=== PATIENT | male | born 1940 | race Caucasian/White ===

== ENCOUNTER → 2017-03-16 | Outpatient (CLI) | payer MEDICARE, BC ==
[~2017-03-16] MED LIST: DOBUTamine DRIP for NUC MED 250 MG in DEXTROSE/WATER 1 250ML.BAG IV ONE
== END | disposition home or self-care (01) ==
LOC: RADNMMAIN 09:45
PROVIDERS: ATTEND Pediatrics
DX: R49.9 Unspecified voice and resonance disorder (principal); R03.0 Elevated blood-pressure reading, without diagnosis of hypertension

== ENCOUNTER → 2017-03-24 | Outpatient (CLI) | payer MEDICARE, BC ==
[~2017-03-24] MED LIST changes: -DOBUTamine DRIP for NUC MED 250 MG in DEXTROSE/WATER 1 250ML.BAG IV ONE; +REGADENOSON 0.4 MG/5 ML SYRINGE IV ONE
--- NOTE | 2017-03-24 10:31 | NM ---
EXAMINATION TYPE: NM stress lexiscan cardiolite DATE OF EXAM: 03/24/2017 COMPARISON: High blood pressure and irregular heartbeat HISTORY: TECHNIQUE: After the intravenous administration of 11 mCi Tc 99m Sestamibi - Cardiolite resting SPEC T images acquired 45 minutes post injection. The patient received 0.4mg Lexiscan, 25.4 mCi Tc 99m Sestamibi - Stress images obtained [address] injection FINDINGS: Review of stress and rest SPECT images demonstrates no distinct perfusion abnormality. Gated analysi s shows normal wall motion with an estimated left ventricular ejection fraction of 57 %. IMPRESSION: No scintigraphic evidence for reversible ischemia.
--- NOTE | 2017-03-24 10:36 | EST ---
EXERCISE STRESS DATE OF SERVICE: 03/24/2017 AGE: 76 SEX: Male HT: 6'0" WT: 130 pounds PROTOCOL: Lexiscan Cardiolite STAGE: DURATION OF EXERCISE: HEART RATE REST: 57 BLOOD PRESSURE REST: 203/48 MAXIMUM HEART RATE ACHIEVED: 84 MAXIMUM BLOOD PRESSURE: 247/63 85% MPHR: 124 100% MPHR: 146 METS: INDICATIONS: Elevated blood pressure CLINICAL INFORMATION: Baseline rhythm is sinus mechanism, rate of 57, normal axis and intervals. Poor R progression. Rare PVCs. Baseline blood pressure 203/48 mmHg. Patient received an injection of Lexiscan. Electrocardiograph monitoring revealed no evidence of diagnostic ischemic ST deviation. Cardiolite was injected per protocol. CONCLUSION: 1. Nondiagnostic electrocardiograph stress testing. 2. Nuclear images will be reported separately. MMODL / IJN: [id number] /
== END | disposition home or self-care (01) ==
LOC: RADNMMAIN 07:39
PROVIDERS: ATTEND Pediatrics
DX: I49.9 Cardiac arrhythmia, unspecified (principal); R03.0 Elevated blood-pressure reading, without diagnosis of hypertension
CPT/HCPCS: 93017; 78452; A9500; J2785

== ENCOUNTER 2020-10-01 10:50 | Inpatient (IN) | payer MEDICARE, BC ==
[2020-10-01] MEDS ORDERED: SODIUM CHLORIDE 0.9% 1,000 ML IV STA (11:10)
--- NOTE | 2020-10-01 11:13 | ED ---
Weakness HPI - General Chief complaint: Weakness Stated complaint: Weakness Time Seen by Provider: 10/01/20 11:01 Source: EMS Mode of arrival: EMS Limitations: no limitations - History of Present Illness Initial comments: 79-year-old male with recently diagnosed stage IV lung cancer presenting to the emergency department with chief complaint of weakness. Patient reports he hasn't progressively feeling weaker and today on his way to the bathroom, he f ell to the ground without any loss of consciousness or any head injuries. Patient does report occasional shortness of breath but states that his baseline. He still continues to smoke cigarettes. He denies any chest pain shortness of breath. States his mouth feels dry. The patient can plenty water. He does report decreased appetite. Denies any urinary symptoms. C covid-19t vaccinations. - Related Data Allergies Allergy/AdvReac Type Severity Reaction Status Date / Time No Known Allergies Allergy Unverified 03/16/17 10:20 Review of Systems ROS Statement: Those systems with pertinent positive or pertinent negative responses have been documented in the HPI. ROS Other: All systems not noted in ROS Statement are negative. Past Medical History Past Medical History: Cancer Additional Past Medical History / Comment(s): Lung CA History of Any Multi-Drug Resistant Organisms: None Reported Past Surgical History: No Surgical Hx Reported Past Psychological History: No Psychological Hx Reported Smoking Status: Current every day smoker Past Alcohol Use History: None Reported Past Drug Use History: None Reported General Exam Limitations: no limitations General appearance: alert, in no apparent distress, cachectic Head exam: Present: atraumatic, normocephalic, normal inspection Eye exam: Present: normal appearance Pupils: Present: normal accommodation ENT exam: Present: normal exam, normal oropharynx, mucous membranes dry Neck exam: Present: normal inspection, full ROM Respiratory exam: Present: normal lung sounds bilaterally. Absent: respiratory distress Cardiovascular Exam: Present: regular rate, normal rhythm, normal heart sounds. Absent: systolic murmur GI/Abdominal exam: Present: soft. Absent: distended, tenderness, guarding, rebound, rigid Extremities exam: Present: normal inspection, full ROM, normal capillary refill. Absent: tenderness Back exam: Present: normal inspection, full ROM. Absent: tenderness Neurological exam: Present: alert, oriented X3 Psychiatric exam: Present: normal affect, normal mood Skin exam: Present: warm, dry, intact, normal color Course Vital Signs 10/01/20 10/01/20 10:57 11:00 Temperature 97.9 F Pulse Rate 61 Respiratory 16 18 Rate Blood Pressure 106/83 EKG Findings - EKG Comments: EKG Findings:: sinus tachycardia. Ventricular rate 102, MI 166, QRS 70, QTC 437. Medical Decision Making - Medical Decision Making 79-year-old male with recently diagnosed stage IV lung cancer presenting to the emergency department with chief complaint of weakness. On physical examination, patient appears to be cachectic. Clinically he is dehydrated. CBC reveals mild leukocytosis. CMP shows elevated BUN and creatinine. Patient also had elevated troponin of 0.066. Patient was started on aspirin immediately. EKG did not appear to be ischemic. UA shows a urinary tract infection. Patient started on Rocephin. I spoke to Dr. Tobar who will admit the patient for medical management. Case discussed with Dr. Celestin. Cardiology consult Oncology consult - Lab Data Result diagrams: 10/01/20 11:25 10/01/20 11:19 Lab Results 10/01/20 10/01/20 10/01/20 Range/Units 11:19 11:19 11:19 WBC (3.8-10.6) k/uL RBC (4.30-5.90) m/uL Hgb (13.0-17.5) gm/dL Hct (39.0-53.0) % MCV (80.0-100.0) fL MCH (25.0-35.0) pg MCHC (31.0-37.0) g/dL RDW (11.5-15.5) % Plt Count (150-450) k/uL MPV Neutrophils % % Lymphocytes % % Monocytes % % Eosinophils % % Basophils % % Neutrophils # (1.3-7.7) k/uL Lymphocytes # (1.0-4.8) k/uL Monocytes # (0-1.0) k/uL Eosinophils # (0-0.7) k/uL Basophils # (0-0.2) k/uL PT 10.9 (9.0-12.0) sec INR 1.0 (<1.2) APTT 22.5 (22.0-30.0) sec Sodium 143 (137-145) mmol/L Potassium 4.3 (3.5-5.1) mmol/L Chloride 107 (98-107) mmol/L Carbon Dioxide 27 (22-30) mmol/L Anion Gap 9 mmol/L BUN 34 H (9-20) mg/dL Creatinine 1.30 H (0.66-1.25) mg/dL Est GFR (CKD-EPI)AfAm 61 (>60 ml/min/1.73 sqM) Est GFR (CKD-EPI)NonAf 53 (>60 ml/min/1.73 sqM) Glucose 113 H (74-99) mg/dL Plasma Lactic Acid Emiliano 1.9 (0.7-2.0) mmol/L Calcium 10.8 H (8.4-10.2) mg/dL Magnesium 2.2 (1.6-2.3) mg/dL Total Bilirubin 1.2 (0.2-1.3) mg/dL AST 103 H (17-59) U/L ALT 34 (4-49) U/L Alkaline Phosphatase 223 H (38-126) U/L Troponin I (0.000-0.034) ng/mL Total Protein 7.1 (6.3-8.2) g/dL Albumin 4.0 (3.5-5.0) g/dL Urine Color Urine Appearance (Clear) Urine pH (5.0-8.0) Ur Specific [place] (1.001-1.035) Urine Protein (Negative) Urine Glucose (UA) (Negative) Urine Ketones (Negative) Urine Blood (Negative) Urine Nitrite (Negative) Urine Bilirubin (Negative) Urine Urobilinogen (<2.0) mg/dL Ur Leukocyte Esterase (Negative) Urine RBC (0-5) /hpf Urine WBC (0-5) /hpf Urine WBC Clumps (None) /hpf Urine Bacteria (None) /hpf Coronavirus (PCR) (Not Detectd) 10/01/20 10/01/20 10/01/20 Range/Units 11:19 11:25 12:13 WBC 11.1 H (3.8-10.6) k/uL RBC 4.83 (4.30-5.90) m/uL Hgb 16.4 (13.0-17.5) gm/dL Hct 48.9 (39.0-53.0) % MCV 101.1 H (80.0-100.0) fL MCH 33.8 (25.0-35.0) pg MCHC 33.5 (31.0-37.0) g/dL RDW 13.0 (11.5-15.5) % Plt Count 472 H (150-450) k/uL MPV 7.3 Neutrophils % 82 % Lymphocytes % 10 % Monocytes % 5 % Eosinophils % 1 % Basophils % 1 % Neutrophils # 9.1 H (1.3-7.7) k/uL Lymphocytes # 1.1 (1.0-4.8) k/uL Monocytes # 0.6 (0-1.0) k/uL Eosinophils # 0.1 (0-0.7) k/uL Basophils # 0.1 (0-0.2) k/uL PT (9.0-12.0) sec INR (<1.2) APTT (22.0-30.0) sec Sodium (137-145) mmol/L Potassium (3.5-5.1) mmol/L Chloride (98-107) mmol/L Carbon Dioxide (22-30) mmol/L Anion Gap mmol/L BUN (9-20) mg/dL Creatinine (0.66-1.25) mg/dL Est GFR (CKD-EPI)AfAm (>60 ml/min/1.73 sqM) Est GFR (CKD-EPI)NonAf (>60 ml/min/1.73 sqM) Glucose (74-99) mg/dL Plasma Lactic Acid Emiliano (0.7-2.0) mmol/L Calcium (8.4-10.2) mg/dL Magnesium (1.6-2.3) mg/dL Total Bilirubin (0.2-1.3) mg/dL AST (17-59) U/L ALT (4-49) U/L Alkaline Phosphatase (38-126) U/L Troponin I 0.066 H* (0.000-0.034) ng/mL Total Protein (6.3-8.2) g/dL Albumin (3.5-5.0) g/dL Urine Color Urine Appearance (Clear) Urine pH (5.0-8.0) Ur Specific [place] (1.001-1.035) Urine Protein (Negative) Urine Glucose (UA) (Negative) Urine Ketones (Negative) Urine Blood (Negative) Urine Nitrite (Negative) Urine Bilirubin (Negative) Urine Urobilinogen (<2.0) mg/dL Ur Leukocyte Esterase (Negative) Urine RBC (0-5) /hpf Urine WBC (0-5) /hpf Urine WBC Clumps (None) /hpf Urine Bacteria (None) /hpf Coronavirus (PCR) Not Detected (Not Detectd) 10/01/20 Range/Units 12:50 WBC (3.8-10.6) k/uL RBC (4.30-5.90) m/uL Hgb (13.0-17.5) gm/dL Hct (39.0-53.0) % MCV (80.0-100.0) fL MCH (25.0-35.0) pg MCHC (31.0-37.0) g/dL RDW (11.5-15.5) % Plt Count (150-450) k/uL MPV Neutrophils % % Lymphocytes % % Monocytes % % Eosinophils % % Basophils % % Neutrophils # (1.3-7.7) k/uL Lymphocytes # (1.0-4.8) k/uL Monocytes # (0-1.0) k/uL Eosinophils # (0-0.7) k/uL Basophils # (0-0.2) k/uL PT (9.0-12.0) sec INR (<1.2) APTT (22.0-30.0) sec Sodium (137-145) mmol/L Potassium (3.5-5.1) mmol/L Chloride (98-107) mmol/L Carbon Dioxide (22-30) mmol/L Anion Gap mmol/L BUN (9-20) mg/dL Creatinine (0.66-1.25) mg/dL Est GFR (CKD-EPI)AfAm (>60 ml/min/1.73 sqM) Est GFR (CKD-EPI)NonAf (>60 ml/min/1.73 sqM) Glucose (74-99) mg/dL Plasma Lactic Acid Emiliano (0.7-2.0) mmol/L Calcium (8.4-10.2) mg/dL Magnesium (1.6-2.3) mg/dL Total Bilirubin (0.2-1.3) mg/dL AST (17-59) U/L ALT (4-49) U/L Alkaline Phosphatase (38-126) U/L Troponin I (0.000-0.034) ng/mL Total Protein (6.3-8.2) g/dL Albumin (3.5-5.0) g/dL Urine Color Yellow Urine Appearance Cloudy (Clear) Urine pH 6.0 (5.0-8.0) Ur Specific [place] 1.010 (1.001-1.035) Urine Protein Trace H (Negative) Urine Glucose (UA) Negative (Negative) Urine Ketones Negative (Negative) Urine Blood Trace H (Negative) Urine Nitrite Negative (Negative) Urine Bilirubin Negative (Negative) Urine Urobilinogen <2.0 (<2.0) mg/dL Ur Leukocyte Esterase Large H (Negative) Urine RBC 8 H (0-5) /hpf Urine WBC >182 H (0-5) /hpf Urine WBC Clumps Few H (None) /hpf Urine Bacteria Rare H (None) /hpf Coronavirus (PCR) (Not Detectd) Disposition Clinical Impression: Urinary tract infection, Weakness, Elevated troponin, Dehydration Disposition: ADMITTED IP TO THIS [facility] Condition: Fair Is patient prescribed a controlled substance at d/c from ED?: No Referrals: Abram Franks MD [Primary Care Provider] - 1-2 days Time of Disposition: 13:53
[2020-10-01 11:44] LABS: Calcium 10.8 mg/dL (8.4-10.2); Magnesium 2.2 mg/dL (1.6-2.3); Potassium 4.3 mmol/L (3.5-5.1); Total Bilirubin 1.2 mg/dL (0.2-1.3); Total Protein 7.1 g/dL (6.3-8.2)
[2020-10-01 11:45] LABS: Basophils # (A) 0.1 k/uL (0-0.2); Basophils % (A) 1 %; Eosinophils # (A) 0.1 k/uL (0-0.7); Eosinophils % (A) 1 %; HCT 48.9 % (39.0-53.0); HGB 16.4 gm/dL (13.0-17.5); Lymphocytes # (A) 1.1 k/uL (1.0-4.8); Lymphocytes % (A) 10 %; MCH 33.8 pg (25.0-35.0); MCHC 33.5 g/dL (31.0-37.0); MCV 101.1 fL (80.0-100.0); Mean Platelet Volume 7.3; Monocytes # (A) 0.6 k/uL (0-1.0); Monocytes % (A) 5 %; Neutrophils # (A) 9.1 k/uL (1.3-7.7); Neutrophils % (A) 82 %; Platelet Count 472 k/uL (150-450); RBC 4.83 m/uL (4.30-5.90); WBC 11.1 k/uL (3.8-10.6)
[2020-10-01 11:49] LABS: Partial Thromboplastin Time 22.5 sec (22.0-30.0); Prothrombin Time 10.9 sec (9.0-12.0)
--- NOTE | 2020-10-01 11:57 | XR ---
EXAMINATION TYPE: XR chest 2V DATE OF EXAM: 10/01/2020 COMPARISON: NONE HISTORY: Weakness. TECHNIQUE: Frontal and lateral views of the chest are obtained. FINDINGS: There is chronic emphysematous pulmonary fibrotic change bilaterally. Entire left lung base not included. Suspicious scattered left lung nodule including 1.5 cm nodule over the anterior left s ixth rib. Possible more regular right suprahilar spiculated nodule. Pectus excavatum deformity on la teral view. Cardiac silhouette size is mildly enlarged. IMPRESSION: Chronic changes and mild cardiomegaly. Suspicious scattered nodules worrisome for metast atic neoplasm correlate clinically to determine need for further investigation by CT study. .
[2020-10-01 13:26] LABS: Appearance,Urine Cloudy (Clear); Bacteria,Urine Rare /hpf; Bilirubin,Urine Negative (Negative); Blood,Urine Trace (Negative); Color,Urine Yellow; Glucose,Urine (UA) Negative (Negative); Ketones,Urine Negative (Negative); Leukocyte Esterase,Urine Large (Negative); Nitrite,Urine Negative (Negative); Protein,Urine Trace (Negative); RBC,Urine 8 /hpf (0-5); Urobilinogen,Urine <2.0 mg/dL (<2.0); WBC,Urine >182 /hpf (0-5)
[2020-10-01] MEDS ORDERED: NALOXONE 0.4 MG/ML 1 ML VIAL IV PRN (13:46)
[2020-10-01] MEDS ORDERED: ONDANSETRON 4 MG/2 ML VIAL IVP PRN (13:46)
[2020-10-01] MEDS ORDERED: cefTRIAXone IN SWFI 1,000 MG/10 ML SYRINGE IVP STA (13:50)
[2020-10-01] MEDS ORDERED: ASPIRIN 325 MG TAB PO STA (13:52)
[2020-10-01] MEDS: SODIUM CHLORIDE 0.9% 1,000 ML IV SCH (14:39)
[2020-10-01] MEDS: traMADol 50 MG TAB PO PRN (14:43)
[2020-10-01] MEDS ORDERED: LORazepam 0.5 MG TAB PO PRN (20:50)
--- NOTE | 2020-10-01 21:36 | P.HPIM ---
History of Present Illness H&P Date: 10/01/20 Chief Complaint: Weakness fall History of presenting complaint: This is a pleasant 79-year-old patient, follows with Dr. Franks. Patient is diagnosed with lung cancer. Due for chemotherapy. Patient has progressively been getting weaker and weaker. Decreased appetite. Significant weight loss. Losing weight. And muscle mass. Does use a cane. Patient became very weak and actually fell down today. Did not pass out. No injury. Patient has significant constipation because of decreased oral intake. No fever no chills. No overt shortness of breath Review of systems: GEN.: Decreased appetite, weight loss EYES: None HEENT: None NECK: None RESPIRATORY: Some shortness of breath CARDIOVASCULAR: None GASTROINTESTINAL: Constipation GENITOURINARY: None MUSCULOSKELETAL: Muscle muscle mass LYMPHATICS: None HEMATOLOGICAL: None PSYCHIATRY: None NEUROLOGICAL: None Past medical history to include: Lung cancer Social history: Smoking for many is currently 1-2 packs a day. Lives alone. . Does use a cane. No alcohol. Family history: Reviewed, noncontributory to presentation Physical examination: VITAL SIGNS: 97.9, 61, 16, 106/83, 96% room air GENERAL: BMI 40.4, laying in bed, cachectic. EYES: Pupils equal. Conjunctiva palel. HEENT: External appearance of nose and ears normal, oral cavity grossly normal. NECK: JVD not raised; masses not palpable. HEART: First and second heart sounds are normal; no edema. LUNGS: Respiratory rate normal; diminished breath sounds. ABDOMEN: Soft, nontender, liver spleen not palpable, no masses palpable. PSYCH: Alert and oriented x3; mood and affect anxiousl. NEUROLOGICAL: Cranial nerves grossly intact; no facial asymmetry, power and sensation grossly intact. LYMPHATICS: No lymph nodes palpable in the axilla and neck INVESTIGATIONS, reviewed in the clinical context: WBC of 11.1 hemoglobin 16.4 platelets 472 potassium 4.3 BUN 34 creatinine 1.3 Troponin I 0.066 UA positive for leukoesterase, WBC, bacteria Coronavirus [PCR]: Not Detected EKG tracing personally reviewed by me-normal sinus rhythm, 4-2 Chest x-ray film personally reviewed by me-hyperinflated. Lung masses. Assessment and plan: -Acute fall from medical asthenia myopathy nutritional PT OT. IV fluids. 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 Stage unknown Due for chemotherapy. Consult oncology -Troponin anemia, but no clinical evidence of ACS. Likely hemodynamic mismatch in the setting of renal failure -COPD in a current smoker DuoNeb -Chronic nicotine dependence, cigarette smoker Nicotine patch -Severe protein calorie malnutrition from poor oral intake Nutritional supplement. Consult dietitian -BPH Flomax 0.4 mg daily -Anorexia from underlying malignancy Marinol Patient be admitted. IV fluids. Dietitian consult. Nutrition supplements. Fall precautions. PT OT. Consult oncology. Given the complexity and severity of patient's condition expect the patient to be in the hospital at least for 2 overnights Past Medical History Past Medical History: Cancer Additional Past Medical History / Comment(s): Lung CA History of Any Multi-Drug Resistant Organisms: None Reported Past Surgical History: No Surgical Hx Reported Past Anesthesia/Blood Transfusion Reactions: No Reported Reaction Past Psychological History: No Psychological Hx Reported Smoking Status: Current some day smoker Past Alcohol Use History: None Reported Past Drug Use History: None Reported Medications and Allergies Home Medications Medication Instructions Recorded Confirmed Type Famotidine [Pepcid] 20 mg PO DAILY 10/01/20 10/01/20 History Folic Acid 1 mg PO DAILY 10/01/20 10/01/20 History LORazepam [Ativan] 0.5 mg PO DAILY PRN 10/01/20 10/01/20 History Polyethylene Glycol 3350 [Miralax] 17 gm PO DAILY 10/01/20 10/01/20 History Tamsulosin HCl [Flomax] 0.4 mg PO DAILY 10/01/20 10/01/20 History dronabinoL [Dronabinol] 5 mg PO HS 10/01/20 10/01/20 History ondansetron HCL [Zofran] 8 mg PO Q8HR PRN 10/01/20 10/01/20 History traMADol HCl [Ultram] 50 mg PO Q6HR PRN 10/01/20 10/01/20 History Allergies Allergy/AdvReac Type Severity Reaction Status Date / Time No Known Allergies Allergy Verified 10/01/20 14:05 Physical Exam Vitals: Vital Signs Temp Pulse Resp BP Pulse Ox 10/01/20 19:26 97.8 F 91 16 101/83 98 10/01/20 18:44 98.0 F 75 16 91/67 96 10/01/20 11:00 18 10/01/20 10:57 97.9 F 61 16 106/83 Intake and Output 10/01/20 10/01/20 10/01/20 06:59 14:59 22:59 Other: Weight 48.081 kg Results CBC & Chem 7: 10/01/20 11:25 10/01/20 11:19 Labs: Abnormal Lab Results - Last 24 Hours (Table) 10/01/20 10/01/20 10/01/20 Range/Units 11:19 11:19 11:25 WBC 11.1 H (3.8-10.6) k/uL MCV 101.1 H (80.0-100.0) fL Plt Count 472 H (150-450) k/uL Neutrophils # 9.1 H (1.3-7.7) k/uL BUN 34 H (9-20) mg/dL Creatinine 1.30 H (0.66-1.25) mg/dL Glucose 113 H (74-99) mg/dL Calcium 10.8 H (8.4-10.2) mg/dL AST 103 H (17-59) U/L Alkaline Phosphatase 223 H (38-126) U/L Troponin I 0.066 H* (0.000-0.034) ng/mL Urine Protein (Negative) Urine Blood (Negative) Ur Leukocyte Esterase (Negative) Urine RBC (0-5) /hpf Urine WBC (0-5) /hpf Urine WBC Clumps (None) /hpf Urine Bacteria (None) /hpf 10/01/20 Range/Units 12:50 WBC (3.8-10.6) k/uL MCV (80.0-100.0) fL Plt Count (150-450) k/uL Neutrophils # (1.3-7.7) k/uL BUN (9-20) mg/dL Creatinine (0.66-1.25) mg/dL Glucose (74-99) mg/dL Calcium (8.4-10.2) mg/dL AST (17-59) U/L Alkaline Phosphatase (38-126) U/L Troponin I (0.000-0.034) ng/mL Urine Protein Trace H (Negative) Urine Blood Trace H (Negative) Ur Leukocyte Esterase Large H (Negative) Urine RBC 8 H (0-5) /hpf Urine WBC >182 H (0-5) /hpf Urine WBC Clumps Few H (None) /hpf Urine Bacteria Rare H (None) /hpf Microbiology - Last 24 Hours (Table) 10/01/20 12:50 Urine Culture - Preliminary Urine,Voided
[2020-10-01] MEDS: NICOTINE 21MG/24HR PATCH TRANSDERM SCH (22:05)
[2020-10-02] MEDS: SODIUM CHLORIDE 0.9% 1,000 ML IV SCH (02:39)
[2020-10-02] MEDS: traMADol 50 MG TAB PO PRN ×2 (05:15→21:00)
[2020-10-02] MEDS: IPRATROPIUM-ALBUTEROL 3 ML NEB INHALATION SCH ×4 (07:49→20:32)
[2020-10-02] MEDS: FOLIC ACID 1 MG TAB PO SCH (08:22)
[2020-10-02] MEDS: NICOTINE 21MG/24HR PATCH TRANSDERM SCH (08:22)
[2020-10-02] MEDS: TAMSULOSIN 0.4 MG CAP.ER.24H PO SCH (08:22)
[2020-10-02] MEDS: FAMOTIDINE 20 MG TAB PO SCH (08:22)
[2020-10-02] MEDS ORDERED: PANTOPRAZOLE 40 MG/10 ML VIAL IV SCH (09:00)
[2020-10-02 09:28] LABS: Calcium 10.1 mg/dL (8.4-10.2); Potassium 4.2 mmol/L (3.5-5.1)
--- NOTE | 2020-10-02 11:17 | P.CRDCN ---
History of Present Illness History of present illness: HISTORY OF PRESENTING ILLNESS This is a pleasant 79-year-old male past medical history significant for stage IV lung cancer and chronic nicotine dependence. 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 We have been asked to see in consultation for elevated troponin. He presented to the hospital after suffering a fall at home. He states he got up to use the bathroom. He felt as though he had to have a bowel movement. He went into the bathroom and started feeling dizzy. He states it felt like the room was spinning and the next thing he remembers is waking up on the floor. He thinks the syncope was brief because his brother heard him fall and came in immediately and woke him up. He denies feeling chest pain or shortness of breath or palpitations prior to falling. He is complaining now of torso pain. He states he's recently been diagnosed with lung cancer and has not begun treatment as of yet. Orthostatic vital signs requested this morning are positive. Supine blood pressure 153/74 and standing blood pressure 74/47. Heart rate went from 84-110. DIAGNOSTICS EKG reveals sinus tachycardia, biatrial enlargement, left axis deviation, poor R-wave progression and nonspecific abnormalities. There are no old EKGs for comparison. Telemetry tracings indicate sinus mechanism. Chest xray chronic changes and mild cardiomegaly, suspicious scattered nodules worrisome for metastatic neoplasm. Laboratory reviewed, WBC 11.1, hemoglobin 16.4, platelets 472, sodium 143, potassium 4.3, creatinine 1.3, magnesium 2.2, troponin 0.0 66. He takes no daily cardiac medications. REVIEW OF SYSTEMS At the time of my exam: CONSTITUTIONAL: Denies fever or chills. CARDIOVASCULAR: Denies chest pain, shortness of breath, orthopnea, PND or palpitations. RESPIRATORY: Denies cough. GASTROINTESTINAL: Denies abdominal pain, diarrhea, constipation, nausea or vomiting. MUSCULOSKELETAL: Denies myalgias. NEUROLOGIC: Complains of dizziness. Denies numbness, tingling, headache or weakness. ENDOCRINE: Denies fatigue, weight change, polydipsia or polyurina. GENITOURINARY: Denies burning, hematuria or urgency with micturation. HEMATOLOGIC: Denies history of anemia or bleeding. PHYSICAL EXAMINATION Blood pressure 153/74 heart rate 92 afebrile and maintaining oxygen saturation on room air. CONSTITUTIONAL: No apparent distress. HEENT: Head is normocephalic. Pupils are equal, round. Sclerae anicteric. Mucous membranes of the mouth are moist. No JVD. No carotid bruit. CHEST EXAMINATION: Lungs are clear to auscultation. No chest wall tenderness is noted on palpation or with deep breathing. Bilaterally. HEART EXAMINATION: Regular rate and rhythm. S1, S2 heard. No murmurs, gallops or rub. ABDOMEN: Soft, nontender. EXTREMITIES: 2+ peripheral pulses, no lower extremity edema and no calf tenderness. NEUROLOGIC EXAMINATION: Patient is awake, alert and oriented x3. ASSESSMENT Syncope secondary to orthostatic changes Orthostatic hypotension Troponin leak, likely due to renal function Acute kidney injury Dehydration Frail, BMI 14 Lung cancer Chronic nicotine dependence PLAN Repeat EKG. Increase IV fluids to 150ml/hr for the next 6 hours. Repeat troponin and BMP. Obtain 2D echocardiogram and doppler study to assess cardiac structure and function. Thank you kindly for this consultation. Nurse Practitioner note has been reviewed, I agree with a documented findings and plan of care. Patient was seen and examined. Past Medical History Past Medical History: Cancer Additional Past Medical History / Comment(s): Lung CA History of Any Multi-Drug Resistant Organisms: None Reported Past Surgical History: No Surgical Hx Reported Past Anesthesia/Blood Transfusion Reactions: No Reported Reaction Past Psychological History: No Psychological Hx Reported Smoking Status: Current some day smoker Past Alcohol Use History: None Reported Past Drug Use History: None Reported Medications and Allergies Home Medications Medication Instructions Recorded Confirmed Type Famotidine [Pepcid] 20 mg PO DAILY 10/01/20 10/01/20 History Folic Acid 1 mg PO DAILY 10/01/20 10/01/20 History LORazepam [Ativan] 0.5 mg PO DAILY PRN 10/01/20 10/01/20 History Polyethylene Glycol 3350 [Miralax] 17 gm PO DAILY 10/01/20 10/01/20 History Tamsulosin HCl [Flomax] 0.4 mg PO DAILY 10/01/20 10/01/20 History dronabinoL [Dronabinol] 5 mg PO HS 10/01/20 10/01/20 History ondansetron HCL [Zofran] 8 mg PO Q8HR PRN 08/18/21 08/18/21 History traMADol HCl [Ultram] 50 mg PO Q6HR PRN 10/01/20 10/01/20 History Allergies Allergy/AdvReac Type Severity Reaction Status Date / Time No Known Allergies Allergy Verified 10/01/20 14:05 Physical Exam Vitals: Vital Signs Temp Pulse Pulse Resp BP BP Pulse Ox 10/02/20 08:03 92 10/02/20 08:00 84 16 153/74 97 10/02/20 07:53 96 10/02/20 04:00 97.8 F 92 16 119/63 96 10/02/20 00:00 97.8 F 99 16 132/70 96 10/01/20 20:00 97.6 F 89 16 128/69 97 10/01/20 19:26 97.8 F 91 16 101/83 98 10/01/20 18:44 98.0 F 75 16 91/67 96 10/01/20 11:00 18 10/01/20 10:57 97.9 F 61 16 106/83 Intake and Output 10/01/20 10/02/20 10/02/20 22:59 06:59 14:59 Output Total 250 Balance -250 Output: Urine 250 Other: Voiding Method Urinal Urinal # Voids 1 Results 10/01/20 11:25 10/02/20 08:42 Cardiac Enzymes 10/01/20 10/01/20 Range/Units 11:19 11:19 AST 103 H (17-59) U/L Troponin I 0.066 H* (0.000-0.034) ng/mL Coagulation 10/01/20 Range/Units 11:19 PT 10.9 (9.0-12.0) sec APTT 22.5 (22.0-30.0) sec CBC 10/01/20 Range/Units 11:25 WBC 11.1 H (3.8-10.6) k/uL RBC 4.83 (4.30-5.90) m/uL Hgb 16.4 (13.0-17.5) gm/dL Hct 48.9 (39.0-53.0) % Plt Count 472 H (150-450) k/uL Comprehensive Metabolic Panel 10/01/20 Range/Units 11:19 Sodium 143 (137-145) mmol/L Potassium 4.3 (3.5-5.1) mmol/L Chloride 107 (98-107) mmol/L Carbon Dioxide 27 (22-30) mmol/L BUN 34 H (9-20) mg/dL Creatinine 1.30 H (0.66-1.25) mg/dL Glucose 113 H (74-99) mg/dL Calcium 10.8 H (8.4-10.2) mg/dL AST 103 H (17-59) U/L ALT 34 (4-49) U/L Alkaline Phosphatase 223 H (38-126) U/L Total Protein 7.1 (6.3-8.2) g/dL Albumin 4.0 (3.5-5.0) g/dL Current Medications Generic Name Dose Route Start Last Admin Trade Name Freq PRN Reason Stop Dose Admin Albuterol/Ipratropium 3 ml 10/02/20 08:00 10/02/20 07:49 Ipratropium-Albuterol 3 Ml Neb INHALATION 3 ml RT-QID SRUTHI Administration Dronabinol 5 mg 10/01/20 21:00 10/01/20 22:05 Dronabinol 2.5 Mg Cap PO 5 mg HS SRUTHI Administration Famotidine 20 mg 10/02/20 09:00 10/02/20 08:22 Famotidine 20 Mg Tab PO 20 mg DAILY SRUTHI Administration Folic Acid 1 mg 10/02/20 09:00 10/02/20 08:22 Folic Acid 1 Mg Tab PO 1 mg DAILY SRUTHI Administration Sodium Chloride 1,000 mls @ 75 mls/hr 10/01/20 14:00 10/02/20 02:39 Saline 0.9% IV 75 mls/hr .[id number] SRUTHI Administration Lorazepam 0.5 mg 10/01/20 20:50 Lorazepam 0.5 Mg Tab PO DAILY PRN Anxiety Naloxone HCl 0.2 mg 10/01/20 13:46 Naloxone 0.4 Mg/Ml 1 Ml Vial IV Q2M PRN Opioid Reversal Nicotine 1 patch 10/01/20 21:45 10/02/20 08:22 Nicotine 21mg/24hr Patch TRANSDERM 1 patch DAILY SRUTHI Administration Ondansetron HCl 4 mg 10/01/20 13:46 Ondansetron 4 Mg/2 Ml Vial IVP Q8HR PRN Nausea And Vomiting Tamsulosin HCl 0.4 mg 10/02/20 09:00 10/02/20 08:22 Tamsulosin 0.4 Mg Cap.Er.24h PO 0.4 mg DAILY SRUTHI Administration Tramadol HCl 50 mg 10/01/20 14:41 10/02/20 05:15 Tramadol 50 Mg Tab PO 50 mg TID PRN Administration Pain Intake and Output 10/01/20 10/02/20 10/02/20 22:59 06:59 14:59 Output Total 250 Balance -250 Output: Urine 250 Other: Voiding Method Urinal Urinal # Voids 1 10/01/20 11:25 10/01/20 11:19
--- NOTE | 2020-10-02 11:34 | ECHOF ---
Referral Reason:syncope, elev trop MEASUREMENTS -------- HEIGHT: 182.9 cm WEIGHT: 48.1 kg BP: IVSd: 1.1 cm (0.6 - 1.1) LVIDd: 2.8 cm (3.9 - 5.3) LVPWd: 1.3 cm (0.6 - 1.1) IVSs: 1.2 cm LVIDs: 1.4 cm LVPWs: 1.6 cm EDV(Teich): 30 ml ESV(Teich): 5 ml EF(Teich): 83 % %FS: 50 % SV(Teich): 24 ml RAP: 5.00 mmHg RVSP: 30.01 mmHg FINDINGS -------- Limited Study: Pt has indentation in chest limited windows. Overall left ventricular systolic function is low-normal with, an EF between 50 - 55 %. T his study is a technically suboptimal with poor acoustic window. difficult to assess the lv function accuratel y. there is atypical motion of the septum The aortic valve was not well visualized. The mitral valve was not well visualized. The mitral valve is normal. The tricuspid valve was not well visualized. The pulmonic valve was not well visualized. CONCLUSIONS -------- 1. Overall left ventricular systolic function is low-normal with, an EF between 50 - 55 %. 2. his study is a technically suboptimal with poor acoustic window. difficult to assess the lv funct ion accurately. there is atypical motion of the septum 3. The aortic valve was not well visualized. 4. The mitral valve was not well visualized. 5. The mitral valve is normal. 6. The tricuspid valve was not well visualized. 7. The pulmonic valve was not well visualized. PARKING GARAGE MANAGER: Gemma Palencia, DOVCS
--- NOTE | 2020-10-02 14:21 | P.CONS ---
History of Present Illness - Reason for Consult Consult date: 10/02/20 metastatic cancer and malnutrition - History of Present Illness Osman was evaluated by us at [facility] after presenting with SOB, weakness, weight loss and diffuse body aches. He was found to have RML mass (3 cm) with multiple bilateral pulmonary nodules and lesion in liver C/W primary lung cancer with mets. He had US-Guided core liver Bx revealing metastatic Adenocarcinoma of lung primary The patient smokes 1 PPD X 60 years, denies ETOH use He C/O constipation, anorexia, weight loss (25 LBS) and lower back pain Both daughters at bedside. Review of Systems All systems: negative Constitutional: Reports as per HPI Past Medical History Past Medical History: Cancer Additional Past Medical History / Comment(s): Lung CA History of Any Multi-Drug Resistant Organisms: None Reported Past Surgical History: No Surgical Hx Reported Past Anesthesia/Blood Transfusion Reactions: No Reported Reaction Past Psychological History: No Psychological Hx Reported Smoking Status: Current some day smoker Past Alcohol Use History: None Reported Past Drug Use History: None Reported Medications and Allergies Home Medications Medication Instructions Recorded Confirmed Type Famotidine [Pepcid] 20 mg PO DAILY 10/01/20 10/01/20 History Folic Acid 1 mg PO DAILY 10/01/20 10/01/20 History LORazepam [Ativan] 0.5 mg PO DAILY PRN 10/01/20 10/01/20 History Polyethylene Glycol 3350 [Miralax] 17 gm PO DAILY 10/01/20 10/01/20 History Tamsulosin HCl [Flomax] 0.4 mg PO DAILY 10/01/20 10/01/20 History dronabinoL [Dronabinol] 5 mg PO HS 10/01/20 10/01/20 History ondansetron HCL [Zofran] 8 mg PO Q8HR PRN 10/01/20 10/01/20 History traMADol HCl [Ultram] 50 mg PO Q6HR PRN 10/01/20 10/01/20 History Allergies Allergy/AdvReac Type Severity Reaction Status Date / Time No Known Allergies Allergy Verified 10/01/20 14:05 Physical Exam Vitals: Vital Signs Temp Pulse Pulse Resp BP BP Pulse Ox 10/02/20 04:00 97.8 F 92 16 119/63 96 10/02/20 00:00 97.8 F 99 16 132/70 96 10/01/20 20:00 97.6 F 89 16 128/69 97 10/01/20 19:26 97.8 F 91 16 101/83 98 10/01/20 18:44 98.0 F 75 16 91/67 96 10/01/20 11:00 18 10/01/20 10:57 97.9 F 61 16 106/83 Intake and Output 10/01/20 10/02/20 10/02/20 22:59 06:59 14:59 Output Total 250 Balance -250 Output: Urine 250 Other: Voiding Method Urinal Urinal # Voids 1 - Constitutional General appearance: no acute distress, thin - EENT Eyes: poor dentition ENT: hard of hearing, NA/AT - Respiratory Respiratory: bilateral: diminished, rhonchi - Cardiovascular Rhythm: irregularly irregular - Gastrointestinal General gastrointestinal: soft - Integumentary Integumentary: pale - Neurologic Neurologic: CNII-XII intact - Musculoskeletal Musculoskeletal: generalized weakness - Psychiatric Psychiatric: A&O x's 3 Results CBC & Chem 7: 10/01/20 11:25 10/02/20 08:42 Labs: Abnormal Lab Results - Last 24 Hours (Table) 10/01/20 10/01/20 10/01/20 Range/Units 11:19 11:19 11:25 WBC 11.1 H (3.8-10.6) k/uL MCV 101.1 H (80.0-100.0) fL Plt Count 472 H (150-450) k/uL Neutrophils # 9.1 H (1.3-7.7) k/uL BUN 34 H (9-20) mg/dL Creatinine 1.30 H (0.66-1.25) mg/dL Glucose 113 H (74-99) mg/dL Calcium 10.8 H (8.4-10.2) mg/dL AST 103 H (17-59) U/L Alkaline Phosphatase 223 H (38-126) U/L Troponin I 0.066 H* (0.000-0.034) ng/mL Urine Protein (Negative) Urine Blood (Negative) Ur Leukocyte Esterase (Negative) Urine RBC (0-5) /hpf Urine WBC (0-5) /hpf Urine WBC Clumps (None) /hpf Urine Bacteria (None) /hpf 08/18/21 Range/Units 12:50 WBC (3.8-10.6) k/uL MCV (80.0-100.0) fL Plt Count (150-450) k/uL Neutrophils # (1.3-7.7) k/uL BUN (9-20) mg/dL Creatinine (0.66-1.25) mg/dL Glucose (74-99) mg/dL Calcium (8.4-10.2) mg/dL AST (17-59) U/L Alkaline Phosphatase (38-126) U/L Troponin I (0.000-0.034) ng/mL Urine Protein Trace H (Negative) Urine Blood Trace H (Negative) Ur Leukocyte Esterase Large H (Negative) Urine RBC 8 H (0-5) /hpf Urine WBC >182 H (0-5) /hpf Urine WBC Clumps Few H (None) /hpf Urine Bacteria Rare H (None) /hpf Microbiology - Last 24 Hours (Table) 10/01/20 12:50 Urine Culture - Preliminary Urine,Voided Assessment and Plan (1) Metastatic lung carcinoma Current Visit: Yes Status: Acute Code(s): C78.00 - SECONDARY MALIGNANT NEOPLASM OF UNSPECIFIED LUNG SNOMED Code(s): 91431475 (2) Malnutrition Current Visit: Yes Status: Acute Code(s): E46 - UNSPECIFIED PROTEIN-CALORIE MALNUTRITION SNOMED Code(s): 87362386 (3) Pain of metastatic malignancy Current Visit: Yes Status: Acute Code(s): G89.3 - NEOPLASM RELATED PAIN (ACUTE) (CHRONIC) SNOMED Code(s): 891859790 Plan: Will add Megace and VTE Prophylaxis for appetite Will further assess bone scan for targeted options pain management with radi ation PT/OT/DIeticien Pre Immune therapy labs (TSH/COrtisol) Vitamin assessment Treatment of UTI and Dehydration per primary team Discussed with patient and daughters at bedside Physician attestation: I have completed the full history and physical and agree with above dictation, dictated as a ascribe.
--- NOTE | 2020-10-02 16:41 | P.PN ---
Progress Note - Text Progress Note Date: 10/02/20 Chief Complaint: Weakness fall History of presenting complaint: This is a pleasant 79-year-old patient, follows with Dr. Franks. Patient is diagnosed with lung cancer. Due for chemotherapy. Patient has progressively been getting weaker and weaker. Decreased appetite. Significant weight loss. Losing weight. And muscle mass. Does use a cane. Patient became very weak and actually fell down today. Did not pass out. No injury. Patient has significant constipation because of decreased oral intake. No fever no chills. No overt shortness of breath Acute fall from medical asthenia, myopathy. Dehydration. Troponin leak from hemodynamic mismatch. No ACS. October 02. Some shortness of breath. Diet. Getting bronchodilators. Daughter at the bedside. Oral intake encouraged. Review of systems: Was done for constitutional, cardiovascular, GI, pulmonary. relevant finding as above Active Medications Albuterol/Ipratropium (Ipratropium-Albuterol 3 Ml Neb) 3 ml INHALATION RT-QID [facility] Last Admin: 10/02/20 16:10 Dose: 3 ml Documented by: Dronabinol (Dronabinol 2.5 Mg Cap) 5 mg PO HS [facility] Last Admin: 10/01/20 22:05 Dose: 5 mg Documented by: Enoxaparin Sodium (Enoxaparin 40 Mg/0.4 Ml Syringe) 40 mg SQ DAILY [facility] Famotidine (Famotidine 20 Mg Tab) 20 mg PO DAILY [facility] Last Admin: 10/02/20 08:22 Dose: 20 mg Documented by: Folic Acid (Folic Acid 1 Mg Tab) 1 mg PO DAILY [facility] Last Admin: 10/02/20 08:22 Dose: 1 mg Documented by: Lorazepam (Lorazepam 0.5 Mg Tab) 0.5 mg PO DAILY PRN PRN Reason: Anxiety Megestrol Acetate (Megestrol 400 Mg/10 Ml Cup) 800 mg PO DAILY [facility] Naloxone HCl (Naloxone 0.4 Mg/Ml 1 Ml Vial) 0.2 mg IV Q2M PRN PRN Reason: Opioid Reversal Nicotine (Nicotine 21mg/24hr Patch) 1 patch TRANSDERM DAILY [facility] Last Admin: 10/02/20 08:22 Dose: 1 patch Documented by: Ondansetron HCl (Ondansetron 4 Mg/2 Ml Vial) 4 mg IVP Q8HR PRN PRN Reason: Nausea And Vomiting Tamsulosin HCl (Tamsulosin 0.4 Mg Cap.Er.24h) 0.4 mg PO DAILY SRUTHI Last Admin: 10/02/20 08:22 Dose: 0.4 mg Documented by: Tramadol HCl (Tramadol 50 Mg Tab) 50 mg PO TID PRN PRN Reason: Pain Last Admin: 10/02/20 05:15 Dose: 50 mg Documented by: Past medical history to include: Lung cancer Social history: Smoking for many is currently 1-2 packs a day. Lives alone. . Does use a cane. No alcohol. Family history: Reviewed, noncontributory to presentation Physical examination: VITAL SIGNS: 97.8, 84, 16, 153/74, 97% room air GENERAL: BMI 14.4 laying in bed, cachectic. EYES: Pupils equal. Conjunctiva pale. HEENT: External appearance of nose and ears normal, oral cavity grossly normal. NECK: JVD not raised; masses not palpable. HEART: First and second heart sounds are normal; no edema. LUNGS: Respiratory rate increased; diminished breath sounds. ABDOMEN: Soft, nontender, liver spleen not palpable, no masses palpable. PSYCH: Alert and oriented x3; mood and affect anxiousl. INVESTIGATIONS, reviewed in the clinical context: October 02: Potassium 4.2 BUN 26 creatinine 1.10 2-D echocardiogram: EF 50-55%. WBC of 11.1 hemoglobin 16.4 platelets 472 potassium 4.3 BUN 34 creatinine 1.3 Troponin I 0.066, 0.058 UA positive for leukoesterase, WBC, bacteria Coronavirus [PCR]: Not Detected EKG tracing personally reviewed by me-normal sinus rhythm, 4-2 Chest x-ray film personally reviewed by me-hyperinflated. Lung masses. Assessment and plan: -Acute fall from medical asthenia myopathy nutritional PT OT. IV fluids. 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 Stage unknown Due for chemotherapy. Consult oncology -Troponinemia, but no clinical evidence of ACS. Likely hemodynamic mismatch in the setting of renal failure -COPD in a current smoker DuoNeb -Chronic nicotine dependence, cigarette smoker Nicotine patch -Severe protein calorie malnutrition from poor oral intake Nutritional supplement. Consult dietitian -BPH Flomax 0.4 mg daily -Anorexia from underlying malignancy Add Megace to Marinol - Continue with IV fluids. Nutritional supplements. Bronchodilators. PTOT. Care discussed with the patient daughter the bedside. Prognosis guarded. Add Megace to Marinol
[2020-10-02] MEDS: MEGESTROL 400 MG/10 ML CUP PO SCH (17:17)
[2020-10-03] MEDS: IPRATROPIUM-ALBUTEROL 3 ML NEB INHALATION SCH ×4 (08:22→19:50)
[2020-10-03 08:52] LABS: ALT 27 U/L (4-49); AST 79 U/L (17-59); African American GFR (CKD) >90 (>60 ml/min/1.73 sqM); Albumin 3.4 g/dL (3.5-5.0); Alkaline Phosphatase 188 U/L (38-126); Anion Gap 5 mmol/L; Blood Urea Nitrogen 17 mg/dL (9-20); Calcium 9.9 mg/dL (8.4-10.2); Carbon Dioxide 26 mmol/L (22-30); Chloride 110 mmol/L (98-107); Glucose 113 mg/dL (74-99); Non-African American GFR(CKD) 78 (>60 ml/min/1.73 sqM); Potassium 3.6 mmol/L (3.5-5.1); Sodium 141 mmol/L (137-145); Total Bilirubin 0.9 mg/dL (0.2-1.3); Total Protein 6.4 g/dL (6.3-8.2)
[2020-10-03 08:57] LABS: Basophils % (A) 0 %; Eosinophils # (A) 0.2 k/uL (0-0.7); Eosinophils % (A) 1 %; HCT 44.3 % (39.0-53.0); HGB 14.5 gm/dL (13.0-17.5); Lymphocytes # (A) 1.6 k/uL (1.0-4.8); Lymphocytes % (A) 14 %; MCHC 32.8 g/dL (31.0-37.0); MCV 100.8 fL (80.0-100.0); Mean Platelet Volume 7.5; Monocytes # (A) 0.6 k/uL (0-1.0); Monocytes % (A) 6 %; Neutrophils % (A) 78 %; Platelet Count 391 k/uL (150-450); RBC 4.39 m/uL (4.30-5.90); RDW 12.5 % (11.5-15.5); WBC 11.6 k/uL (3.8-10.6)
[2020-10-03] MEDS: ENOXAPARIN 40 MG/0.4 ML SYRINGE SQ SCH (09:35)
[2020-10-03] MEDS: NICOTINE 21MG/24HR PATCH TRANSDERM SCH (09:35)
[2020-10-03] MEDS: FOLIC ACID 1 MG TAB PO SCH (09:35)
[2020-10-03] MEDS: TAMSULOSIN 0.4 MG CAP.ER.24H PO SCH (09:35)
[2020-10-03] MEDS: MEGESTROL 400 MG/10 ML CUP PO SCH (09:35)
[2020-10-03] MEDS: FAMOTIDINE 20 MG TAB PO SCH (09:35)
--- NOTE | 2020-10-03 12:58 | CT ---
EXAMINATION TYPE: CT angio chest DATE OF EXAM: 10/03/2020 COMPARISON: None HISTORY: 79 year-old male shortness of breath, Elevated d [id number] TECHNIQUE: Contiguous axial scanning of the chest performed with IV Contrast, patient injected with 1 00, wasted 38 mL of Isovue 370. Coronal/sagittal MIP reconstructions performed. CT DLP: 182.9 mGycm Automated exposure control for dose reduction was used. FINDINGS: Heart normal size without pericardial effusion. Pectus excavatum deformity. No flattening of the inte rventricular septum or reflux of contrast into the hepatic veins. Borderline ectasia aortic root at 3.5 cm. Mild atherosclerotic arch calcifications. The right subclavian artery is not adequately visualized. The distal left subclavian and axillary art eries are not adequately visualized. Moderate atherosclerotic arch calcifications. Ectatic distal aor tic arch at 3.2 cm. Satisfactory opacification of the pulmonary arterial system without evidence for pulmonary embolus. Small lower left paratracheal lymph nodes measure up to 6 mm. No thoracic lymphadenopathy by CT size criteria. Moderate centrilobular emphysema. Spiculated mass right upper lobe measuring 3.8 x 1.8 cm. Anterior branch of the left upper lobe bronc hus courses adjacent to the mass. 1.4 cm anterior basilar left lower lobe pulmonary nodule, axial image 107. Additional numerous 1 cm and smaller bilateral pulmonary nodules. No consolidation or pleural effusion. Prominent endobronchial opacification of the bronchus intermedius extending into right lower lobe seg mental branches, refer to axial image 84 for example. Visualized upper abdomen shows approximately 4 right liver lobe masses ranging in size from 2.0 cm up to 5.8 cm. Abnormal nodule, possible retroperitoneal lymphadenopathy or adrenal mass on the left measuring 2.3 x 1.9 cm. Right adrenal mass measures up to 3.6 x 2.2 cm. Bones: Lytic osseous metastases, largest within the left T10 vertebral body extending into the it compliance analyst ior elements encroaching onto the left T10-T11 neuroforamen. There may be an associated pathologic inferior endplate fracture of L1, sagittal image 89. Lesion within the right posterior third rib and left posterior. Lytic lesion involving the left lateral fourth rib and left posterior eighth rib. Suspect additional lytic lesions within the left scapula, axial image 7 and 12. Right scapula, axial image 11. IMPRESSION: 1. NO EVIDENCE FOR PULMONARY EMBOLUS. COPD WITH MODERATE EMPHYSEMA. EXTENSIVE ENDOBRONCHIAL OPACIFICA TION BRONCHUS INTERMEDIUS EXTENDING INTO THE RIGHT LOWER LOBE BRONCHI, NEOPLASM VERSUS MUCOID DEBRIS. 2. METASTATIC DISEASE. RIGHT UPPER LOBE MASS MEASURING 2.8 X 1.8 CM IN CLOSE APPROXIMATION TO THE ANT ERIOR BRANCH OF THE LEFT UPPER LOBE BRONCHUS. NUMEROUS ADDITIONAL BILATERAL PULMONARY NODULES MEASURE UP TO 1.4 CM. 3. AT LEAST 4 LESIONS WITHIN THE RIGHT LIVER LOBE RANGING IN SIZE FROM 2.0 CM UP TO 5.8 CM SUSPICIOUS FOR METASTATIC DISEASE. 4. SUSPECTED BILATERAL ADRENAL METASTASES MEASURING UP TO 3.6 CM. 5. DIFFUSE LYTIC OSSEOUS METASTASES. 6. POSSIBLE HIGH-GRADE STENOSIS OR OCCLUSION RIGHT SUBCLAVIAN ARTERY. THE DISTAL LEFT SUBCLAVIAN DEBBIE RY AND AXILLARY ARTERY ARE NOT ADEQUATELY VISUALIZED, POSSIBLE HIGH-GRADE STENOSIS OR OCCLUSION HERE WELL.
--- NOTE | 2020-10-03 16:17 | NM ---
EXAMINATION TYPE: NM bone scan whole body DATE OF EXAM: 10/03/2020 COMPARISON: CT chest 10/03/2020 HISTORY: Pain Delayed whole-body scanning was performed following the injection of 23.4 mCi Tc 99m MDP. Images acq uired 7 hours post injection. FINDINGS: There is abnormal uptake involving the bilateral shoulders. Abnormal uptake is seen throughout the lower cervical, thoracic and lumbar spine suspicious for metas tases. Mottled uptake involving bilateral rib cage greater on the posterior left rib cage is nonspecific but suspicious for metastases. Abnormal uptake involving bilateral iliac bones and proximal femur greater on the right suggestive of metastases. Abnormal uptake involving the right knee likely post arthritic. Nonspecific uptake involving the sternum demonstrates no corresponding CT scan abnormality IMPRESSION: 1. Findings are suspicious for metastases involving the vertebral column, proximal femur and pelvic b ones. 2. Findings are compatible with metastases involving the rib cage. 3. Abnormal uptake involving bilateral shoulders corresponds to destructive lesions on CT scan compat ible with metastases. Abnormal uptake involving the sternum also suspicious for metastases.
[2020-10-03] MEDS: traMADol 50 MG TAB PO PRN (19:57)
--- NOTE | 2020-10-03 20:34 | P.PN ---
Subjective Progress Note Date: 10/03/20 Principal diagnosis: worsenin decline, matastatic cancer Doing a bit better today, no family at bedside during visit. Objective - Vital Signs Vital signs: Vital Signs Temp 98.1 F 10/03/20 08:40 Pulse 124 H 10/03/20 08:40 Resp 16 10/03/20 08:40 BP 102/66 10/03/20 08:40 Pulse Ox 97 10/03/20 08:40 Intake & Output 10/02/20 10/03/20 10/03/20 18:59 06:59 18:59 Intake Total 1317 240 Output Total 1100 Balance 1317 -1100 240 Weight 48.081 kg 44.5 kg Intake: Intake, IV Titration 900 Amount Sodium Chloride 0.9% 1, 900 000 ml @ 150 mls/hr IV . Q6H40M [facility] Rx#:[id number] Oral 417 240 Output: Urine 1100 Other: Voiding Method Urinal Urinal # Voids 1 2 # Bowel Movements 2 - Exam - Constitutional General appearance: no acute distress, thin - EENT Eyes: poor dentition ENT: hard of hearing, NA/AT - Respiratory Respiratory: bilateral: diminished, rhonchi - Cardiovascular Rhythm: irregularly irregular - Gastrointestinal General gastrointestinal: soft - Integumentary Integumentary: pale - Neurologic Neurologic: CNII-XII intact - Musculoskeletal Musculoskeletal: generalized weakness - Psychiatric - Labs CBC & Chem 7: 10/03/20 08:14 10/03/20 08:14 Labs: Abnormal Lab Results - Last 24 Hours (Table) 10/03/20 10/03/20 Range/Units 08:14 08:14 WBC 11.6 H (3.8-10.6) k/uL MCV 100.8 H (80.0-100.0) fL Neutrophils # 9.0 H (1.3-7.7) k/uL Chloride 110 H (98-107) mmol/L Glucose 113 H (74-99) mg/dL AST 79 H (17-59) U/L Alkaline Phosphatase 188 H (38-126) U/L Albumin 3.4 L (3.5-5.0) g/dL Microbiology - Last 24 Hours (Table) 10/01/20 12:50 Urine Culture - Preliminary Urine,Voided Group D Enterococcus 10/01/20 14:15 Blood Culture - Preliminary Blood No Growth after 24 hours 10/01/20 14:28 Blood Culture - Preliminary Blood No Growth after 24 hours Assessment and Plan (1) Metastatic lung carcinoma Current Visit: Yes Status: Acute Code(s): C78.00 - SECONDARY MALIGNANT NEOPLASM OF UNSPECIFIED LUNG SNOMED Code(s): 03357599 (2) Malnutrition Current Visit: Yes Status: Acute Code(s): E46 - UNSPECIFIED PROTEIN-CALORIE MALNUTRITION SNOMED Code(s): 65743812 (3) Pain of metastatic malignancy Current Visit: Yes Status: Acute Code(s): G89.3 - NEOPLASM RELATED PAIN (ACUTE) (CHRONIC) SNOMED Code(s): 849444322 Plan: Will add Megace and VTE Prophylaxis for appetite PT/OT/DIeticien Treatment of UTI and Dehydration per primary team Bone scan reveals multiple areas of metastatic cancer as well as femur, destructive bone lesions to bilateral shoulders, Hypercalcemia ma add biphosphonate as outpatient. Conitnue supportive care and improve PO intake as well as performance. Follow-up in office for treatment one after resolution of infection and completion of antibiotics Physician attestation: I have completed the full history and physical and agree with above dictation, dictated as a ascribe.
--- NOTE | 2020-10-03 21:58 | P.PN ---
Progress Note - Text Progress Note Date: 10/03/20 Chief Complaint: Weakness fall History of presenting complaint: This is a pleasant 79-year-old patient, follows with Dr. Franks. Patient is diagnosed with lung cancer. Due for chemotherapy. Patient has progressively been getting weaker and weaker. Decreased appetite. Significant weight loss. Losing weight. And muscle mass. Does use a cane. Patient became very weak and actually fell down today. Did not pass out. No injury. Patient has significant constipation because of decreased oral intake. No fever no chills. No overt shortness of breath Acute fall from medical asthenia, myopathy. Dehydration. Troponin leak from hemodynamic mismatch. No ACS. October 02. Some shortness of breath. Diet. Getting bronchodilators. Daughter at the bedside. Oral intake encouraged. October 03: Decreased appetite. Daughter visiting. Tired. Some shortness of breath. CT angiogram chest: Extensive disease. Review of systems: Was done for constitutional, cardiovascular, GI, pulmonary. relevant finding as above Active Medications Albuterol/Ipratropium (Ipratropium-Albuterol 3 Ml Neb) 3 ml INHALATION RT-QID [facility] [place] Last Admin: 10/03/20 19:50 Dose: 3 ml Documented by: Dronabinol (Dronabinol 2.5 Mg Cap) 5 mg PO HS [facility] [place] Last Admin: 10/03/20 20:02 Dose: 5 mg Documented by: Enoxaparin Sodium (Enoxaparin 40 Mg/0.4 Ml Syringe) 40 mg SQ DAILY [facility] [place] Last Admin: 10/03/20 09:35 Dose: 40 mg Documented by: Famotidine (Famotidine 20 Mg Tab) 20 mg PO DAILY [facility] [place] Last Admin: 10/03/20 09:35 Dose: 20 mg Documented by: Folic Acid (Folic Acid 1 Mg Tab) 1 mg PO DAILY [facility] [place] Last Admin: 10/03/20 09:35 Dose: 1 mg Documented by: Lorazepam (Lorazepam 0.5 Mg Tab) 0.5 mg PO DAILY PRN PRN Reason: Anxiety Megestrol Acetate (Megestrol 400 Mg/10 Ml Cup) 800 mg PO DAILY [facility] [place] Last Admin: 10/03/20 09:35 Dose: 800 mg Documented by: Naloxone HCl (Naloxone 0.4 Mg/Ml 1 Ml Vial) 0.2 mg IV Q2M PRN PRN Reason: Opioid Reversal Nicotine (Nicotine 21mg/24hr Patch) 1 patch TRANSDERM DAILY [facility] [place] Last Admin: 10/03/20 09:35 Dose: 1 patch Documented by: Ondansetron HCl (Ondansetron 4 Mg/2 Ml Vial) 4 mg IVP Q8HR PRN PRN Reason: Nausea And Vomiting Tamsulosin HCl (Tamsulosin 0.4 Mg Cap.Er.24h) 0.4 mg PO DAILY [facility] [place] Last Admin: 10/03/20 09:35 Dose: 0.4 mg Documented by: Tramadol HCl (Tramadol 50 Mg Tab) 50 mg PO TID PRN PRN Reason: Pain Last Admin: 10/03/20 19:57 Dose: 50 mg Documented by: Past medical history to include: Lung cancer Social history: Smoking for many is currently 1-2 packs a day. Lives alone. . Does use a cane. No alcohol. Family history: Reviewed, noncontributory to presentation Physical examination: VITAL SIGNS: 98.1, 100, 16, orthostatic positive with lying 102/66, standing 59/49 GENERAL: BMI 14.4 laying in bed, cachectic. EYES: Pupils equal. Conjunctiva pale. HEENT: External appearance of nose and ears normal, oral cavity grossly normal. NECK: JVD not raised; masses not palpable. HEART: First and second heart sounds are normal; no edema. LUNGS: Respiratory rate increased; diminished breath sounds. ABDOMEN: Soft, nontender, liver spleen not palpable, no masses palpable. PSYCH: Alert and oriented x3; mood and affect anxious. INVESTIGATIONS, reviewed in the clinical context: October 03: WBC 11.6 hemoglobin 14.5 platelets 391 potassium 3.6 creatinine 0.94 Chest CTA: Noted COPD. Moderate emphysema. Extensive endobronchial opacification. Neoplasm versus mucoid debris. Metastatic disease in the right upper lobe mass 2.8 x 1.8 cm. Numerous additional bilateral pulmonary nodules. At least 4 lesions in the right liver lobe. Up to 5.8 cm. 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 Diffuse lytic osseous metastatic this. Possible high-grade stenosis occlusion right subclavian artery. Possibly other arteries.. October 02: Potassium 4.2 BUN 26 creatinine 1.10 2-D echocardiogram: EF 50-55%. WBC of 11.1 hemoglobin 16.4 platelets 472 potassium 4.3 BUN 34 creatinine 1.3 Troponin I 0.066, 0.058 UA positive for leukoesterase, WBC, bacteria Coronavirus [PCR]: Not Detected EKG tracing personally reviewed by me-normal sinus rhythm, 4-2 Chest x-ray film personally reviewed by me-hyperinflated. Lung masses. Assessment and plan: -Acute fall from medical asthenia myopathy nutritional, orthostatic PT OT. IV fluids. 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 Follow with oncology -Troponinemia, but no clinical evidence of ACS. Likely hemodynamic mismatch in the setting of renal failure -COPD in a current smoker DuoNeb -Chronic nicotine dependence, cigarette smoker Nicotine patch -Severe protein calorie malnutrition from poor oral intake Nutritional supplement. Consult dietitian -BPH Flomax 0.4 mg daily -Anorexia from underlying malignancy Megace to Marinol - Poor prognosis. Bone scan ordered by oncology. Continue current medications. Care was discussed at length with the daughter at the bedside. Given the severity of the disease and very poor functional status, hospice may be appropriate pending further evaluation by oncology
[2020-10-04] MEDS: traMADol 50 MG TAB PO PRN ×3 (05:49→20:50)
[2020-10-04] MEDS: IPRATROPIUM-ALBUTEROL 3 ML NEB INHALATION SCH ×4 (07:55→19:00)
[2020-10-04] MEDS: TAMSULOSIN 0.4 MG CAP.ER.24H PO SCH (08:49)
[2020-10-04] MEDS: FAMOTIDINE 20 MG TAB PO SCH (08:49)
[2020-10-04] MEDS: MEGESTROL 400 MG/10 ML CUP PO SCH (08:49)
[2020-10-04] MEDS: AMOXICILLIN 500 MG CAP PO SCH ×2 (08:49→16:49)
[2020-10-04] MEDS: ENOXAPARIN 40 MG/0.4 ML SYRINGE SQ SCH (08:49)
[2020-10-04] MEDS: FOLIC ACID 1 MG TAB PO SCH (08:49)
[2020-10-04] MEDS: NICOTINE 21MG/24HR PATCH TRANSDERM SCH (08:50)
--- NOTE | 2020-10-04 17:34 | P.PN ---
Subjective Progress Note Date: 10/04/20 The patient reports some improvement in overall strength and appetite. However he continues to have marked generalized weakness. He is able to transfer from the bed with some assistance and walk to the bathroom with a walker, also with assistance. However appetite is still diminished and overall activity level is very poor. Objective - Vital Signs Vital signs: Vital Signs Temp 97.5 F L 10/04/20 14:00 Pulse 85 10/04/20 15:15 Resp 16 10/04/20 14:00 BP 107/66 10/04/20 14:00 Pulse Ox 96 10/04/20 14:00 Intake & Output 10/03/20 10/04/20 10/04/20 18:59 06:59 18:59 Intake Total 480 240 Balance 480 240 Intake: Oral 480 240 Other: Voiding Method Urinal Urinal Urinal # Voids 1 2 # Bowel Movements 2 - Constitutional General appearance: Present: no acute distress - EENT Eyes: Present: EOMI ENT: Present: hearing grossly normal, normal oropharynx - Respiratory Respiratory: bilateral: CTA - Cardiovascular Rhythm: regular Heart sounds: normal: S1, S2 - Gastrointestinal General gastrointestinal: Present: soft - Integumentary Integumentary: Present: normal - Neurologic Neurologic Comment(s): Very weak, drifting off to sleep during conversation Neurologic: Present: CNII-XII intact - Musculoskeletal Musculoskeletal: Present: generalized weakness, strength equal bilaterally - Psychiatric Psychiatric: Present: A&O x's 3, appropriate affect - Labs CBC & Chem 7: 10/03/20 08:14 10/03/20 08:14 Labs: Microbiology - Last 24 Hours (Table) 10/01/20 14:15 Blood Culture - Preliminary Blood No Growth after 72 hours 10/01/20 14:28 Blood Culture - Preliminary Blood No Growth after 72 hours 10/01/20 12:50 Urine Culture - Final Urine,Voided Enterococcus faecalis Assessment and Plan (1) Metastatic lung carcinoma Narrative/Plan: Patient's bone scan shows extensive osseous metastasis involving for cervical, thoracic and lumbar spine as well as bilateral pelvis and femurs and rib cage. CAT scans also show bilateral lung nodules in addition to the lung primary, as well as evidence of liver and bilateral adrenal metastasis. Bone metastasis are now obvious on computed tomography scan which is a change from previous - The results, in conjunction with his current condition, were discussed in detail with him, his daughter was at the bedside. They were advised that the results confirm a very heavy burden of disease but don't actually changes the stages will be stage IV. There would not also change the specific antineoplastic regimen plan which would remain the same for stage IV disease regardless of extent. The only difference would be the addition of a specific bone strengthening medication , and consideration of palliative radiation to areas of increased pain - Despite extensive bone metastasis the patient does not appear to be having uncontrolled pain. Symptoms are controlled with pain medication. - The main issue in his situation as his current performance status. They were advised that while there is some improvement with treatment of UTI and hydration, his overall performance status remains extremely poor. He still requiring assistance with most of his ADLs and is mostly bedbound. In this situation it would be a very suboptimal candidate for any aggressive antineoplastic treatment. They were advised that treatment in this situation is likely to cause more adverse events rather than clinical benefit fast enough to make a significant difference in his symptomatology or survival. Given his current performance status actually any aggressive antineoplastic treatment may actually have the risk of shortening life expectancy - The expressed understanding of the same. A family meeting is planned for tomorrow. Unless there is any major improvement in her parents condition it appears that they will likely consider comfort care at that point. Current Visit: Yes Status: Acute Code(s): C78.00 - SECONDARY MALIGNANT NEOPLASM OF UNSPECIFIED LUNG SNOMED Code(s): 37668701 (2) Dehydration Narrative/Plan: Multi-factorial, mainly due to marked anorexia related to malignancy and possibly UTI. Mild improvement in overall strength with hydration Current Visit: Yes Status: Acute Code(s): E86.0 - DEHYDRATION SNOMED Code(s): 55013902 Plan: Continue treatment for UTI, and other supportive care for admitting service. Patient's pain is reasonably well-controlled
--- NOTE | 2020-10-04 20:08 | P.PN ---
Progress Note - Text Progress Note Date: 10/04/20 Chief Complaint: Weakness fall History of presenting complaint: This is a pleasant 79-year-old patient, follows with Dr. Franks. Patient is diagnosed with lung cancer. Due for chemotherapy. Patient has progressively been getting weaker and weaker. Decreased appetite. Significant weight loss. Losing weight. And muscle mass. Does use a cane. Patient became very weak and actually fell down today. Did not pass out. No injury. Patient has significant constipation because of decreased oral intake. No fever no chills. No overt shortness of breath Acute fall from medical asthenia, myopathy. Dehydration. Troponin leak from hemodynamic mismatch. No ACS. October 02. Some shortness of breath. Diet. Getting bronchodilators. Daughter at the bedside. Oral intake encouraged. October 03: Decreased appetite. Daughter visiting. Tired. Some shortness of breath. CT angiogram chest: Extensive disease. October 04: Laying in bed. Tired. Decreased appetite. Broadly results of the computed tomography scan were discussed with the daughter the bedside. Prognosis not good. Given the very poor functional status has not really candidate for any treatment. Did say that the oncologist make the final determination. Encourage oral intake. Patient's pretty much bed bound Review of systems: Was done for constitutional, cardiovascular, GI, pulmonary. relevant finding as above Active Medications Albuterol/Ipratropium (Ipratropium-Albuterol 3 Ml Neb) 3 ml INHALATION RT-QID [facility] Last Admin: 10/04/20 19:00 Dose: 3 ml Documented by: Amoxicillin (Amoxicillin 500 Mg Cap) 500 mg PO Q8HR [facility] Last Admin: 10/04/20 16:49 Dose: 500 mg Documented by: Dronabinol (Dronabinol 2.5 Mg Cap) 5 mg PO HS [facility] Last Admin: 10/03/20 20:02 Dose: 5 mg Documented by: Enoxaparin Sodium (Enoxaparin 40 Mg/0.4 Ml Syringe) 40 mg SQ DAILY [facility] Last Admin: 10/04/20 08:49 Dose: 40 mg Documented by: Famotidine (Famotidine 20 Mg Tab) 20 mg PO DAILY [facility] Last Admin: 10/04/20 08:49 Dose: 20 mg Documented by: Folic Acid (Folic Acid 1 Mg Tab) 1 mg PO DAILY [facility] Last Admin: 10/04/20 08:49 Dose: 1 mg Documented by: Lorazepam (Lorazepam 0.5 Mg Tab) 0.5 mg PO DAILY PRN PRN Reason: Anxiety Megestrol Acetate (Megestrol 400 Mg/10 Ml Cup) 800 mg PO DAILY [facility] Last Admin: 10/04/20 08:49 Dose: 800 mg Documented by: Naloxone HCl (Naloxone 0.4 Mg/Ml 1 Ml Vial) 0.2 mg IV Q2M PRN PRN Reason: Opioid Reversal Nicotine (Nicotine 21mg/24hr Patch) 1 patch TRANSDERM DAILY [facility] Last Admin: 10/04/20 08:50 Dose: 1 patch Documented by: Ondansetron HCl (Ondansetron 4 Mg/2 Ml Vial) 4 mg IVP Q8HR PRN PRN Reason: Nausea And Vomiting Tamsulosin HCl (Tamsulosin 0.4 Mg Cap.Er.24h) 0.4 mg PO DAILY [facility] Last Admin: 10/04/20 08:49 Dose: 0.4 mg Documented by: Tramadol HCl (Tramadol 50 Mg Tab) 50 mg PO TID PRN PRN Reason: Pain Last Admin: 10/04/20 12:28 Dose: 50 mg Documented by: Past medical history to include: Lung cancer Social history: Smoking for many is currently 1-2 packs a day. Lives alone. . Does use a cane. No alcohol. Family history: Reviewed, noncontributory to presentation Physical examination: VITAL SIGNS: 97.5, 78, 16, 107/56, 96% room air GENERAL: BMI 14.4 laying in bed, cachectic. Tired EYES: Pupils equal. Conjunctiva pale. HEENT: External appearance of nose and ears normal, oral cavity grossly normal. NECK: JVD not raised; masses not palpable. HEART: First and second heart sounds are normal; no edema. LUNGS: Respiratory rate increased; diminished breath sounds. ABDOMEN: Soft, nontender, liver spleen not palpable, no masses palpable. PSYCH: Tired, lethargic, answering questions. INVESTIGATIONS, reviewed in the clinical context: October 03: WBC 11.6 hemoglobin 14.5 platelets 391 potassium 3.6 creatinine 0.94 Chest CTA: Noted COPD. Moderate emphysema. Extensive endobronchial opacification. Neoplasm versus mucoid debris. Metastatic disease in the right upper lobe mass 2.8 x 1.8 cm. Numerous additional bilateral pulmonary nodules. At least 4 lesions in the right liver lobe. Up to 5.8 cm. 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 Diffuse lytic osseous metastatic this. Possible high-grade stenosis occlusion right subclavian artery. Possibly other arteries.. October 02: Potassium 4.2 BUN 26 creatinine 1.10 2-D echocardiogram: EF 50-55%. WBC of 11.1 hemoglobin 16.4 platelets 472 potassium 4.3 BUN 34 creatinine 1.3 Troponin I 0.066, 0.058 UA positive for leukoesterase, WBC, bacteria Coronavirus [PCR]: Not Detected EKG tracing personally reviewed by me-normal sinus rhythm, 4-2 Chest x-ray film personally reviewed by me-hyperinflated. Lung masses. Assessment and plan: -Acute fall from medical asthenia , myopathy nutritional, orthostatic PT OT. IV fluids. 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 Especially in view of poor functional status. Follow with oncology -Troponinemia, but no clinical evidence of ACS. Likely hemodynamic mismatch in the setting of renal failure -COPD in a current smoker DuoNeb -Chronic nicotine dependence, cigarette smoker Nicotine patch -Severe protein calorie malnutrition from poor oral intake: Slow to respond Nutritional supplement. dietitian -BPH Flomax 0.4 mg daily -Anorexia from underlying malignancy Megace to Marinol - Discussed with daughter the bedside. Prognosis poor. Poor function status. Awaiting oncology discussed with the patient and the daughter. Continue current treatment plan. May be leaning towards hospice soon.
[2020-10-05] MEDS: AMOXICILLIN 500 MG CAP PO SCH ×4 (00:54→23:13)
[2020-10-05] MEDS: FOLIC ACID 1 MG TAB PO SCH (07:54)
[2020-10-05] MEDS: FAMOTIDINE 20 MG TAB PO SCH (07:54)
[2020-10-05] MEDS: TAMSULOSIN 0.4 MG CAP.ER.24H PO SCH (07:54)
[2020-10-05] MEDS: ENOXAPARIN 40 MG/0.4 ML SYRINGE SQ SCH (07:54)
[2020-10-05] MEDS: MEGESTROL 400 MG/10 ML CUP PO SCH (07:54)
[2020-10-05] MEDS: NICOTINE 21MG/24HR PATCH TRANSDERM SCH (07:54)
[2020-10-05] MEDS: IPRATROPIUM-ALBUTEROL 3 ML NEB INHALATION SCH ×4 (09:31→19:02)
--- NOTE | 2020-10-05 14:24 | P.PN ---
Progress Note - Text Progress Note Date: 10/05/20 Chief Complaint: Weakness fall History of presenting complaint: This is a pleasant 79-year-old patient, follows with Dr. Franks. Patient is diagnosed with lung cancer. Due for chemotherapy. Patient has progressively been getting weaker and weaker. Decreased appetite. Significant weight loss. Losing weight. And muscle mass. Does use a cane. Patient became very weak and actually fell down today. Did not pass out. No injury. Patient has significant constipation because of decreased oral intake. No fever no chills. No overt shortness of breath Acute fall from medical asthenia, myopathy. Dehydration. Troponin leak from hemodynamic mismatch. No ACS. October 02. Some shortness of breath. Diet. Getting bronchodilators. Daughter at the bedside. Oral intake encouraged. October 03: Decreased appetite. Daughter visiting. Tired. Some shortness of breath. CT angiogram chest: Extensive disease. October 04: Laying in bed. Tired. Decreased appetite. Broadly results of the computed tomography scan were discussed with the daughter the bedside. Prognosis not good. Given the very poor functional status has not really candidate for any treatment. Did say that the oncologist make the final determination. Encourage oral intake. Patient's pretty much bed bound October 05: Weak and tired. Lethargic. Able to answer questions. Daughter the bedside. Variable oral intake. Did speak to the patient and daughter the bedside. They understand of the cancer at advanced and given his poor functional status options a very limited. The family and the patient have a meeting this afternoon with oncology team Dr. Lira. Questions were answered. Review of systems: Was done for constitutional, cardiovascular, GI, pulmonary. relevant finding as above Active Medications Albuterol/Ipratropium (Ipratropium-Albuterol 3 Ml Neb) 3 ml INHALATION RT-QID [facility] Last Admin: 10/05/20 12:43 Dose: 3 ml Documented by: Amoxicillin (Amoxicillin 500 Mg Cap) 500 mg PO Q8HR [facility] Last Admin: 10/05/20 07:54 Dose: 500 mg Documented by: Dronabinol (Dronabinol 2.5 Mg Cap) 5 mg PO HS [facility] Last Admin: 10/04/20 20:50 Dose: 5 mg Documented by: Enoxaparin Sodium (Enoxaparin 40 Mg/0.4 Ml Syringe) 40 mg SQ DAILY [facility] Last Admin: 10/05/20 07:54 Dose: 40 mg Documented by: Famotidine (Famotidine 20 Mg Tab) 20 mg PO DAILY [facility] Last Admin: 10/05/20 07:54 Dose: 20 mg Documented by: Folic Acid (Folic Acid 1 Mg Tab) 1 mg PO DAILY [facility] Last Admin: 10/05/20 07:54 Dose: 1 mg Documented by: Lorazepam (Lorazepam 0.5 Mg Tab) 0.5 mg PO DAILY PRN PRN Reason: Anxiety Megestrol Acetate (Megestrol 400 Mg/10 Ml Cup) 800 mg PO DAILY [facility] Last Admin: 10/05/20 07:54 Dose: 800 mg Documented by: Naloxone HCl (Naloxone 0.4 Mg/Ml 1 Ml Vial) 0.2 mg IV Q2M PRN PRN Reason: Opioid Reversal Nicotine (Nicotine 21mg/24hr Patch) 1 patch TRANSDERM DAILY [facility] Last Admin: 10/05/20 07:54 Dose: 1 patch Documented by: Ondansetron HCl (Ondansetron 4 Mg/2 Ml Vial) 4 mg IVP Q8HR PRN PRN Reason: Nausea And Vomiting Tamsulosin HCl (Tamsulosin 0.4 Mg Cap.Er.24h) 0.4 mg PO DAILY [facility] Last Admin: 10/05/20 07:54 Dose: 0.4 mg Documented by: Tramadol HCl (Tramadol 50 Mg Tab) 50 mg PO TID PRN PRN Reason: Pain Last Admin: 10/04/20 20:50 Dose: 50 mg Documented by: Past medical history to include: Lung cancer Social history: Smoking for many is currently 1-2 packs a day. Lives alone. . Does use a cane. No alcohol. Family history: Reviewed, noncontributory to presentation Physical examination: VITAL SIGNS: 98.2, 71, 18, 101/62, 98% room air GENERAL: laying in bed, cachectic. Tired EYES: Pupils equal. Conjunctiva pale. HEENT: External appearance of nose and ears normal, oral cavity grossly normal. NECK: JVD not raised; masses not palpable. HEART: First and second heart sounds are normal; no edema. LUNGS: Respiratory rate increased; diminished breath sounds. ABDOMEN: Soft, nontender, liver spleen not palpable, no masses palpable. PSYCH: Tired, lethargic, answering simple questions. INVESTIGATIONS, reviewed in the clinical context: October 03: WBC 11.6 hemoglobin 14.5 platelets 391 potassium 3.6 creatinine 0.94 Chest CTA: Noted COPD. Moderate emphysema. Extensive endobronchial opacific ation. Neoplasm versus mucoid debris. Metastatic disease in the right upper lobe mass 2.8 x 1.8 cm. Numerous additional bilateral pulmonary nodules. At least 4 lesions in the right liver lobe. Up to 5.8 cm. 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 Diffuse lytic osseous metastatic this. Possible high-grade stenosis occlusion right subclavian artery. Possibly other arteries.. October 02: Potassium 4.2 BUN 26 creatinine 1.10 2-D echocardiogram: EF 50-55%. WBC of 11.1 hemoglobin 16.4 platelets 472 potassium 4.3 BUN 34 creatinine 1.3 Troponin I 0.066, 0.058 UA positive for leukoesterase, WBC, bacteria Coronavirus [PCR]: Not Detected EKG tracing personally reviewed by me-normal sinus rhythm, 4-2 Chest x-ray film personally reviewed by me-hyperinflated. Lung masses. Assessment and plan: -Acute fall from medical asthenia , myopathy nutritional, orthostatic PT OT. IV fluids. 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 Especially in view of poor functional status. Follow with oncology -Troponinemia, but no clinical evidence of ACS. Likely hemodynamic mismatch in the setting of renal failure -COPD in a current smoker DuoNeb -Chronic nicotine dependence, cigarette smoker Nicotine patch -Severe protein calorie malnutrition from poor oral intake: Slow to respond Nutritional supplement. dietitian -BPH Flomax 0.4 mg daily -Anorexia from underlying malignancy Megace to Marinol - Patient condition show poorly. Spoke to the patient daughter the bedside. Patient and the daughters have a meeting with Dr. Lira later this afternoon. Hospice will be an appropriate course to go.
[2020-10-05] MEDS: traMADol 50 MG TAB PO PRN (20:19)
[2020-10-06] MEDS: ENOXAPARIN 40 MG/0.4 ML SYRINGE SQ SCH (08:09)
[2020-10-06] MEDS: FOLIC ACID 1 MG TAB PO SCH (08:12)
[2020-10-06] MEDS: AMOXICILLIN 500 MG CAP PO SCH (08:12)
[2020-10-06] MEDS: TAMSULOSIN 0.4 MG CAP.ER.24H PO SCH (08:12)
[2020-10-06] MEDS: FAMOTIDINE 20 MG TAB PO SCH (08:12)
[2020-10-06] MEDS: traMADol 50 MG TAB PO PRN ×2 (08:12→16:07)
[2020-10-06] MEDS: NICOTINE 21MG/24HR PATCH TRANSDERM SCH (08:13)
[2020-10-06] MEDS: MEGESTROL 400 MG/10 ML CUP PO SCH (08:13)
[2020-10-06] MEDS: IPRATROPIUM-ALBUTEROL 3 ML NEB INHALATION SCH ×3 (08:19→15:26)
[2020-10-06 08:26] VITALS: RESP 18
--- NOTE | 2020-10-06 13:58 | P.PN ---
Subjective Progress Note Date: 10/06/20 Principal diagnosis: Progressive weakness, progressive lung cancer In follow-up today patient has no acute physical complaints, still generally weak. His appetite is still poor, he denies any nausea or vomiting, breathing is stable at rest, no chest pain, occasionally he will have some back pain, pain meds are adequate when he uses them. Objective - Vital Signs Vital signs: Vital Signs Temp 98.0 F 10/06/20 08:00 Pulse 85 10/06/20 12:06 Resp 18 10/06/20 08:00 BP 93/56 10/06/20 08:00 Pulse Ox 98 10/06/20 08:22 Intake & Output 10/05/20 10/06/20 10/06/20 18:59 06:59 18:59 Intake Total 472 Balance 472 Intake: Oral 472 Other: Voiding Method Urinal Urinal Urinal # Voids 1 1 1 - Constitutional Constitutional Comment(s): Masseter muscle wasting General appearance: Present: cooperative, no acute distress, thin - EENT Eyes: Present: anicteric sclerae, EOMI - Respiratory Details: Weak inspiratory effort Respiratory: bilateral: diminished - Cardiovascular Rhythm: regular Abnormal Heart Sounds: Absent: systolic murmur, diastolic murmur, rub, S3 Gallop, S4 Gallop, click, other - Gastrointestinal General gastrointestinal: Present: soft - Neurologic Neurologic: Present: CNII-XII intact - Musculoskeletal Musculoskeletal: Present: generalized weakness - Psychiatric Psychiatric: Present: A&O x's 3, appropriate affect, intact judgment & insight - Labs CBC & Chem 7: 10/03/20 08:14 10/03/20 08:14 Labs: Microbiology - Last 24 Hours (Table) 10/01/20 14:15 Blood Culture - Preliminary Blood No Growth after 96 hours 10/01/20 14:28 Blood Culture - Preliminary Blood No Growth after 96 hours Assessment and Plan (1) Dehydration Narrative/Plan: IV hydration, resolved Current Visit: Yes Status: Resolved Code(s): E86.0 - DEHYDRATION SNOMED Code(s): 91042582 (2) Malnutrition Narrative/Plan: Progressive, most likely secondary to malignancy. Patient is on Marinol and Megace Current Visit: Yes Status: Chronic Priority: High Code(s): E46 - UNSPECIFIED PROTEIN-CALORIE MALNUTRITION SNOMED Code(s): 11289513 (3) Metastatic lung carcinoma Current Visit: Yes Status: Chronic Priority: High Code(s): C78.00 - SECONDARY MALIGNANT NEOPLASM OF UNSPECIFIED LUNG SNOMED Code(s): 29814252 (4) Pain of metastatic malignancy Narrative/Plan: Patient states adequate pain control with current pain medications. Current Visit: Yes Status: Acute Priority: Medium Code(s): G89.3 - NEOPLASM RELATED PAIN (ACUTE) (CHRONIC) SNOMED Code(s): 034260646 (5) Urinary tract infection Narrative/Plan: Patient is on antibiotics Current Visit: Yes Status: Acute Priority: High Code(s): N39.0 - URINARY TRACT INFECTION, SITE NOT SPECIFIED SNOMED Code(s): 17627686 (6) Weakness Narrative/Plan: Little to no improvement in performance status. Current Visit: Yes Status: Acute Priority: High Code(s): R53.1 - WEAKNESS SNOMED Code(s): 29698495 Plan: Reviewed with the patient and the daughter at bedside patient's poor prognosis. Patient's current performance status he is poor and he is not a candidate for any aggressive therapy. The likelyhood that treatment will have a meaningful impact on pt cancer is low. With disease progressing-more likely cause of his symptoms and continued decline in performance status-Treatment would likely cause more harm to the pt with side effects and low physical reserve. We discussed life expectancy measured in weeks. All questions were answered to the best of my ability. Patient and his daughter had no further questions at this time. Discussed with Nursing. Encouraged hospice but, if the family is not ready for that would definitely insist upon palliative care. She will contact me if the family on the patient has any other questions or concerns for me. I'm more happy to review these options further with them. Time with Patient: Greater than 30
[2020-10-06 15:23] VITALS: BMI 13.3
[2020-10-06 16:07] VITALS: BP 87/53; PULSE 85; TEMP 97.7
== END 2020-10-06 16:24 | disposition home or self-care (01) | DRG 689 ==
LOC: EC 10:50 → 3SCARD 14:29
PROVIDERS: ADMIT Hospitalist; ATTEND Hospitalist
DX: N39.0 Urinary tract infection, site not specified (principal); E43 Unspecified severe protein-calorie malnutrition; C79.51 Secondary malignant neoplasm of bone; C79.71 Secondary malignant neoplasm of right adrenal gland; C79.72 Secondary malignant neoplasm of left adrenal gland; C78.7 Secondary malignant neoplasm of liver and intrahepatic bile duct; N17.9 Acute kidney failure, unspecified; Z68.1 Body mass index [BMI] 19.9 or less, adult; C34.90 Malignant neoplasm of unspecified part of unspecified bronchus or lung; R79.89 Other specified abnormal findings of blood chemistry; Z20.822 Contact with and (suspected) exposure to COVID-19; G72.9 Myopathy, unspecified; D64.9 Anemia, unspecified; E86.0 Dehydration; I51.7 Cardiomegaly; F17.210 Nicotine dependence, cigarettes, uncomplicated; G89.3 Neoplasm related pain (acute) (chronic); I95.1 Orthostatic hypotension; N40.0 Benign prostatic hyperplasia without lower urinary tract symptoms; J44.9 Chronic obstructive pulmonary disease, unspecified; K59.00 Constipation, unspecified; R00.0 Tachycardia, unspecified; M54.5 Low back pain; R54 Age-related physical debility; W19.XXXA Unspecified fall, initial encounter; Y92.009 Unspecified place in unspecified non-institutional (private) residence as the place of occurrence of the external cause; Z79.899 Other long term (current) drug therapy
CPT/HCPCS: 36415; 71046; 71275; 78306; 80048; 80053; 81001; 82306; 82533; 82607; 83605; 83735; 83921; 83970; 84443; 84484; 85025; 85379; 85610; 85730; 87040; 87077; 87086; 87186; 87635; 93005; 93306; 94640; 94760; 96360; 96361; 99285